=== PATIENT | female | born 1985 | race Caucasian/White ===

== ENCOUNTER 2018-01-14 15:05 | Emergency (ER) | payer MEDICAID, SELFPAY ==
[~2018-01-14] VITALS: Ht 162.6 cm; Wt 61.0 kg
[2018-01-14 15:29] VITALS: BP 111/78
== END 2018-01-14 16:20 | disposition home or self-care (01) ==
LOC: ED 16:10
DX: F41.9 Anxiety disorder, unspecified (principal); Z76.0 Encounter for issue of repeat prescription
CPT/HCPCS: 99281

== ENCOUNTER 2019-06-20 16:31 | Emergency (ER) | payer MEDICAID ==
[~2019-06-20] VITALS: Ht 162.6 cm; Wt 73.5 kg
[2019-06-20 17:14] VITALS: BP 114/74
--- NOTE | 2019-06-20 17:16 | NUR ---
THIS IS A 34 YO F W/ C/O INTERMITTENT SOB, NON PRODUCTIVE COUGH AND FEVERS AT HOME. PT VS STABLE, RESP EVEN AND UNLABORED, NADN. PT IS RESTING ON GURNEY W/ CALL LIGHT IN REACH. AWAITING CXR RESULTS. DENIES FURTHER NEEDS AT THIS TIME.
--- NOTE | 2019-06-20 17:34 | NUR ---
ALL TESTS RESULTED. PT IS UP FOR RECHECK AT THIS TIME.
== END 2019-06-20 18:10 | disposition home or self-care (01) ==
LOC: ED 16:41
DX: J45.21 Mild intermittent asthma with (acute) exacerbation (principal); F17.210 Nicotine dependence, cigarettes, uncomplicated
CPT/HCPCS: 71045; 93005; 99283